=== PATIENT | female | born 2000 | race Hispanic/Latino ===

== ENCOUNTER 2024-01-30 17:11 | Emergency (ER) | payer SELFPAY ==
[2024-01-30] MEDS ORDERED: Dexamethasone 10 MG/ML VIAL ONE (17:53)
== END 2024-01-30 18:05 | disposition home or self-care (01) ==
LOC: CSHERS 17:11
DX: M62.838 Other muscle spasm (principal); F17.290 Nicotine dependence, other tobacco product, uncomplicated
CPT/HCPCS: 99283; J1100